=== PATIENT | female | born 1950 | race Hispanic/Latino ===

== ENCOUNTER 2020-01-17 23:45 | Emergency (ER) | payer OTHER ==
[~2020-01-17] VITALS: Ht 157.5 cm; Wt 95.3 kg
== END 2020-01-18 01:07 | disposition home or self-care (01) ==
LOC: FSED 01-18 00:10
DX: R07.2 Precordial pain (principal); E11.65 Type 2 diabetes mellitus with hyperglycemia; I10 Essential (primary) hypertension
CPT/HCPCS: 71045; 80053; 84484; 85025; 93005; 99283

== ENCOUNTER 2023-08-13 15:53 | Emergency (ER) | payer MEDICARE, OTHER ==
[~2023-08-13] VITALS: Ht 157.5 cm; Wt 95.3 kg
[2023-08-13] MEDS ORDERED: ONDANSETRON HCL INJ 2MG/ML 2ML 2 MG/ML VIAL ONE (17:01)
[2023-08-13] MEDS: ONDANSETRON HCL INJ 2MG/ML 2ML 2 MG/ML VIAL IV STA (17:09)
[2023-08-13] MEDS: SODIUM CHLORIDE 0.9% 1000ML 1,000 ML IV SCH (17:09)
[2023-08-13] MEDS: MECLIZINE HCL 12.5 MG TAB PO ONE (17:10)
[2023-08-13] MEDS ORDERED: ACETAMINOPHEN 325 MG TAB ONE (18:06)
[2023-08-13] MEDS: ACETAMINOPHEN 325 MG TAB PO ONE (18:22)
[2023-08-13 19:17] VITALS: O2SAT 98
[2023-08-13] MEDS ORDERED: MECLIZINE HCL25 MG PO (19:59)
[2023-08-13] MEDS ORDERED: ONDANSETRON ODT4 MG PO (20:00)
[2023-08-13] MEDS ORDERED: PANTOPRAZOLE SO40 MG PO (21:22)
== END 2023-08-13 20:17 | disposition home or self-care (01) ==
LOC: FSED 16:05
DX: H81.10 Benign paroxysmal vertigo, unspecified ear (principal); R53.1 Weakness; S40.012A Contusion of left shoulder, initial encounter; S80.01XA Contusion of right knee, initial encounter; W01.0XXA Fall on same level from slipping, tripping and stumbling without subsequent striking against object, initial encounter; Y93.01 Activity, walking, marching and hiking; Y92.89 Other specified places as the place of occurrence of the external cause; I10 Essential (primary) hypertension; E11.65 Type 2 diabetes mellitus with hyperglycemia; E78.5 Hyperlipidemia, unspecified; K21.9 Gastro-esophageal reflux disease without esophagitis
CPT/HCPCS: 70450; 71046; 73030; 73562; 80053; 81003; 84484; 85025; 85379; 93005; 99284; J2405; J7030; J8597